=== PATIENT | male | born 1940 | race Caucasian/White ===

== ENCOUNTER 2019-10-12 15:17 | Outpatient (CLI) | payer MEDICARE, OTHER | END 2019-10-12 23:59 | disposition EMS.NT | LOC: EMS 15:17 | PROVIDERS: ATTEND Surgery | DX: R00.0 Tachycardia, unspecified (principal) ==

== ENCOUNTER 2019-12-01 14:54 | Emergency (ER) | payer MEDICARE, OTHER ==
[2019-12-01 15:04] VITALS: BP 145/67
--- NOTE | 2019-12-01 15:58 | ED Physician Documentation ---
PD HPI URI - Stated complaint Stated Complaint: CHEST CONGESTION/COUGH/WEAKNESS - Chief complaint Chief Complaint: Resp - History obtained from History obtained from: Patient - History of Present Illness Timing - onset: Today, How many weeks ago (1) Timing details: Gradual onset Pain level max: 0 Pain level now: 0 Associated symptoms: Productive cough. No: Fever, Chills, Sweats, Nasal congestion, Chest pain, Dyspnea Contributing factors: No: Sick contact Improves by: Rest Worsened by: Activity - Additional information Additional information: 79-year-old male states that he is been coughing for the past week. He states that it was productive then it turned dry and now is turned productive again. He denies any fevers. He states that he wants to make sure he does not have pneumonia. Nothing makes it better or worse. Review of Systems Constitutional: denies: Fever, Chills Nose: reports: Rhinorrhea / runny nose, Congestion Throat: denies: Sore throat Cardiac: denies: Chest pain / pressure, Palpitations Respiratory: reports: Cough GI: denies: Vomiting, Diarrhea Skin: denies: Rash Musculoskeletal: denies: Neck pain, Back pain Neurologic: denies: Headache PD PAST MEDICAL HISTORY - Past Medical History Past Medical History: Yes Cardiovascular: Hypertension, High cholesterol - Allergies Allergies/Adverse Reactions: Allergies Allergy/AdvReac Type Severity Reaction Status Date / Time No Known Drug Allergies Allergy Verified 12/01/19 15:01 PD ED PE NORMAL - Vitals Vital signs reviewed: Yes - General General: Alert and oriented X 3, No acute distress, Well developed/nourished - HEENT HEENT: Ears normal, Moist mucous membranes, Pharynx benign - Neck Neck: Supple, no meningeal sign - Cardiac Cardiac: RRR, Strong equal pulses - Respiratory Respiratory: No respiratory distress, Clear bilaterally - Abdomen Abdomen: Soft, Non tender, Non distended - Derm Derm: Warm and dry - Extremities Extremities: No edema - Neuro Neuro: Alert and oriented X 3 - Psych Psych: Normal mood, Normal affect Results - Vitals Vitals: Vital Signs - 24 hr 12/01/19 15:01 Temperature 36.6 C Heart Rate 109 H Respiratory 14 Rate Blood Pressure 145/67 H O2 Saturation 97 - Rads (name of study) Chest x-ray Radiology: Prelim report reviewed, EMP read contemporaneously, See rad report (No acute disease) PD MEDICAL DECISION MAKING - ED course Complexity details: reviewed results, re-evaluated patient, considered differential, d/w patient ED course: 79-year-old male presents the emergency department with what appears to be a viral upper respiratory infection. No acute findings on x-ray. He is well- appearing, nontoxic. Afebrile. No hypoxia. No respiratory distress. We will have him follow-up with his doctor as needed for further care. Patient counseled regarding signs and symptoms for which I believe and urgent re- evaluation would be necessary. Patient with good understanding of and agreement to plan and is comfortable going home at this time This document was made in part using voice recognition software. While efforts are made to proofread this document, sound alike and grammatical errors may oc cur. Departure - Departure Disposition: 01 Home, Self Care Clinical Impression: Upper respiratory tract infection Qualifiers: URI type: unspecified viral URI Qualified Code(s): J06.9 - Acute upper respiratory infection, unspecified Condition: Good Instructions: ED URI Viral Follow-Up: Yaya Cosme MD [Primary Care Provider] - As Needed Comments: Return if you worsen. You can continue to use [id number] medications as needed at home You do not have pneumonia on your chest x-ray today
--- NOTE | 2019-12-01 16:16 | XRAY Report ---
Reason: cough Procedure Date: 12/01/2019 Accession Number: [id number] / [id number] Procedure: XR - Chest 2 View X-Ray CPT Code: 57078 Final Report FULL RESULT: EXAM: CHEST RADIOGRAPHY EXAM DATE: 12/01/2019 04:05 PM. CLINICAL HISTORY: Cough. COMPARISON: None. TECHNIQUE: 2 views. FINDINGS: Lungs/Pleura: No focal opacities evident. No pleural effusion. No pneumothorax. Normal volumes. Mediastinum: Heart and mediastinal contours are unremarkable. Other: None. IMPRESSION: No acute cardiopulmonary process. RADIA
== END 2019-12-01 16:25 | disposition home or self-care (01) ==
LOC: ED 14:54
DX: J06.9 Acute upper respiratory infection, unspecified (principal); I10 Essential (primary) hypertension
CPT/HCPCS: 71046; 99283; 99284

== ENCOUNTER 2021-03-04 19:58 | Outpatient (CLI) | payer MEDICARE, OTHER | END 2021-03-04 19:59 | disposition critical access hospital (66) | LOC: EMS 19:58 | DX: S00.83XA Contusion of other part of head, initial encounter (principal); S81.802A Unspecified open wound, left lower leg, initial encounter; W18.30XA Fall on same level, unspecified, initial encounter; Y92.821 Forest as the place of occurrence of the external cause | CPT/HCPCS: A0425; A0429 ==

== ENCOUNTER 2021-03-04 20:24 | Emergency (ER) | payer MEDICARE, OTHER ==
--- OUTSIDE RECORDS SUMMARY | 2021-03-04 20:57 | EXTERNAL MEDICAL SUMMARY RPT | Continuity of Care Document ---
:1940 Demographics Phone Unavailable Preferred Language Unknown Marital Status Unknown Mormon Affiliation Unknown Race Unknown Ethnic Group Unknown Author Organization [facility] Address [address] [phone] Phone Allergies Encounters Medications Problems Results
--- NOTE | 2021-03-04 21:10 | ED Physician Documentation ---
PD HPI Fall - Stated complaint Stated Complaint: FELL, HIT HEAD, SKIN TEAR ON LEG - Chief complaint Chief Complaint: Laceration - History obtained from History obtained from: Patient - History of Present Illness Mechanism of injury: Unknown Fall distance: Standing position Timing - onset: Unknown Associated symptoms: No: LOC Contributing factors: No: Anticoagulated Recently seen: Not recently seen - Additional information Additional information: BIBA.patient fell while walking earlier today, unsure what caused him to fall. denies LOC, denies PERERA. Review of Systems Eyes: reports: Reviewed and negative Cardiac: reports: Reviewed and negative Respiratory: reports: Reviewed and negative GI: reports: Reviewed and negative Skin: reports: Other (LLE skin tear) Musculoskeletal: reports: Reviewed and negative Neurologic: reports: Head injury. denies: Generalized weakness, Headache, LOC PD PAST MEDICAL HISTORY - Past Medical History Cardiovascular: Hypertension, High cholesterol - Allergies Allergies/Adverse Reactions: Allergies Allergy/AdvReac Type Severity Reaction Status Date / Time No Known Drug Allergies Allergy Verified 03/04/21 20:44 PD ED PE NORMAL - Vitals Vital signs reviewed: Yes - General General: Alert and oriented X 3, No acute distress, Well developed/nourished - HEENT HEENT: PERRL, EOMI - Neck Neck: No bony TTP - Cardiac Cardiac: RRR - Respiratory Respiratory: No respiratory distress, Clear bilaterally - Abdomen Abdomen: Soft, Non tender - Derm Derm: Normal color, Warm and dry - Extremities Extremities: No deformity, No tenderness to palpate, Normal ROM s pain - Neuro Neuro: Alert and oriented X 3, diving supervisor 2-12 intact, No motor deficit, No sensory deficit, Normal speech Eye Opening: Spontaneous Motor: Obeys Commands Verbal: Oriented GCS Score: 15 PD ED PE EXPANDED - HEENT HEENT Visual: 1 - bruising, swelling, tenderness - Extremities Extremities: Other (left lower leg, pretibial surface with skin tear) Results - Vitals Vitals: Oxygen O2 Source Room air - Rads (name of study) CT head Radiology: Prelim report reviewed, See rad report PD MEDICAL DECISION MAKING - ED course Complexity details: reviewed results, re-evaluated patient, considered differential, d/w patient Departure - Departure Disposition: 01 Home, Self Care Clinical Impression: Head injury Qualifiers: Encounter type: initial encounter Qualified Code(s): S09.90XA - Unspecified injury of head, initial encounter Skin tear of left lower leg without complication Qualifiers: Encounter type: initial encounter Qualified Code(s): S81.812A - Laceration without foreign body, left lower leg, initial encounter Condition: Good Instructions: ED Head Injury Closed Sleep Mon, ED Avulsion Dermal Follow-Up: Yaya Cosme MD [Primary Care Provider] - (3-5 days for recheck of the wound) Discharge Date/Time: 03/04/21 23:10
[2021-03-04] MEDS ORDERED: BACITRACIN ZINC OINT 1 PACKET TOP STA (21:21)
[2021-03-04 22:49] VITALS: BP 154/79
--- NOTE | 2021-03-05 10:01 | CT Report ---
PROCEDURE: HEAD WO INDICATIONS: head injury TECHNIQUE: Noncontrast 4.5 mm thick angled axial sections acquired from the foramen magnum to the vertex. For r adiation dose reduction, the following was used: automated exposure control, adjustment of mA and/or kV according to patient size. COMPARISON: None. FINDINGS: Image quality: Excellent. CSF spaces: Basal cisterns are patent. No extra-axial fluid collections. Ventricles are normal in size and shape. Brain: No midline shift. No intracranial masses or hemorrhage. Lee-white matter interface is norm al. Age-appropriate brain parenchymal volume loss and chronic small vessel ischemic change can be se en. Skull and face: Minimal right periorbital/forehead soft tissue hematoma can be seen. No regional fra cture is seen. Calvarium and visualized facial bones are intact, without suspicious lesions. Sinuses: Visualized sinuses and mastoids are clear. IMPRESSION: No significant intracranial abnormality is seen. No intracranial hemorrhage is seen. Right pleural/reported hematoma, without an underlying fracture. Note: No significant discrepancy from the preliminary report. Reviewed by: Frederick Pike MD on 03/05/2021 9:00 AM JUVE Approved by: Frederick Pike MD on 03/05/2021 9:00 AM JUVE Station ID: [id number]
== END 2021-03-04 23:10 | disposition home or self-care (01) ==
LOC: EDUNIT# → ED 20:24
DX: S09.90XA Unspecified injury of head, initial encounter (principal); S81.812A Laceration without foreign body, left lower leg, initial encounter; S00.83XA Contusion of other part of head, initial encounter; W01.198A Fall on same level from slipping, tripping and stumbling with subsequent striking against other object, initial encounter; Y93.01 Activity, walking, marching and hiking; Y92.821 Forest as the place of occurrence of the external cause; I10 Essential (primary) hypertension
CPT/HCPCS: 70450; 99282; 99284; A9270

== ENCOUNTER 2021-03-23 09:50 | Outpatient (CLI) | payer MEDICARE, OTHER ==
[2021-03-23 14:48] LABS: HCT - HEMATOCRIT 37.6 % (42.0-52.0); HGB - HEMOGLOBIN 11.8 g/dL (14.0-18.0); MEAN CORPUSCULAR HEMOGLOBIN 30.2 pg (27.0-31.0); MEAN CORPUSCULAR HGB CONC 31.4 g/dL (32.0-36.0); MEAN CORPUSCULAR VOLUME 96.2 fL (80.0-94.0); MEAN PLATELET VOLUME 9.7 fL (7.4-11.4); RED BLOOD COUNT 3.91 10^6/uL (4.70-6.10); RED CELL DISTRIBUTION WIDTH 13.2 % (12.0-15.0); WHITE BLOOD COUNT 5.4 x10^3/uL (4.8-10.8)
[2021-03-23 16:02] LABS: THYROID STIMULATING HORMONE 1.95 uIU/mL (0.34-5.60)
[2021-03-23 16:03] LABS: ALBUMIN/GLOBULIN RATIO 1.1 (1.0-2.2); ALKALINE PHOSPHATASE 49 IU/L (42-121); ALT ALANINE AMINOTRANSFERASE 27 IU/L (10-60); AST ASPARTATE AMINOTRANSFERASE 24 IU/L (10-42); BILIRUBIN,TOTAL 0.7 mg/dL (0.2-1.0); BUN - BLOOD UREA NITROGEN 29 mg/dL (6-20); CALCIUM 9.2 mg/dL (8.5-10.3); CARBON DIOXIDE - CO2 24 mmol/L (21-32); CHLORIDE 107 mmol/L (101-111); CHOL/HDL RATIO 2.5 (<5.0); CHOLESTEROL 140 mg/dL; GFR - MDRD 72 (>89); GLUCOSE 124 mg/dL (70-100); HDL CHOLESTEROL 56 mg/dL; LDL CHOLESTEROL,CALCULATED 62 mg/dL; LDL/HDL RATIO 1.1 (<3.6); POTASSIUM 4.2 mmol/L (3.5-5.0); SODIUM 141 mmol/L (135-145); TOTAL PROTEIN 7.8 g/dL (6.7-8.2); TRIGLYCERIDES 109 mg/dL; VLDL CHOLESTEROL 22 mg/dL
== END 2021-03-23 09:51 | disposition home or self-care (01) ==
LOC: LAB.S 09:50
PROVIDERS: ATTEND Family Medicine
DX: C61 Malignant neoplasm of prostate (principal); E78.00 Pure hypercholesterolemia, unspecified; I10 Essential (primary) hypertension; E53.8 Deficiency of other specified B group vitamins
CPT/HCPCS: 36415; 80053; 80061; 82607; 83721; 84153; 84443; 85027

== ENCOUNTER 2021-09-01 18:51 | Outpatient (CLI) | payer MEDICARE, OTHER | END 2021-09-01 18:52 | disposition critical access hospital (66) | LOC: EMS 18:51 | DX: S51.812A Laceration without foreign body of left forearm, initial encounter (principal); R07.81 Pleurodynia; V49.49XA Driver injured in collision with other motor vehicles in traffic accident, initial encounter; Y93.89 Activity, other specified; Y92.411 Interstate highway as the place of occurrence of the external cause | CPT/HCPCS: A0425; A0429 ==

== ENCOUNTER 2021-09-01 19:15 | Emergency (ER) | payer OTHER, MEDICARE ==
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
[2021-09-01 20:48] VITALS: BP 161/75
== END 2021-09-01 20:50 | disposition home or self-care (01) ==
LOC: EDUNIT# → ED 19:15
DX: S20.211A Contusion of right front wall of thorax, initial encounter (principal); S50.812A Abrasion of left forearm, initial encounter; S00.81XA Abrasion of other part of head, initial encounter; V43.52XA Car driver injured in collision with other type car in traffic accident, initial encounter; W22.11XA Striking against or struck by driver side automobile airbag, initial encounter; Y92.410 Unspecified street and highway as the place of occurrence of the external cause; I10 Essential (primary) hypertension
CPT/HCPCS: 99282; 99283

== ENCOUNTER 2021-12-08 15:31 | Outpatient (CLI) | payer MEDICARE, OTHER ==
[2021-12-08 18:46] LABS: CALCIUM 9.8 mg/dL (8.5-10.3); CREATININE 1.1 mg/dL (0.6-1.2); CRP - C-REACTIVE PROTEIN 1.2 mg/dL (0-1.0); POTASSIUM 4.7 mmol/L (3.5-5.0)
== END 2021-12-08 15:32 | disposition home or self-care (01) ==
LOC: LAB.S 15:31
PROVIDERS: ATTEND Internal Medicine Rheumatology
DX: M35.3 Polymyalgia rheumatica (principal); Z79.52 Long term (current) use of systemic steroids
CPT/HCPCS: 36415; 80048; 85651; 86140

== ENCOUNTER 2022-01-31 11:51 | Outpatient (CLI) | payer MEDICARE, OTHER | END 2022-01-31 11:52 | disposition EMS.NT | LOC: EMS 11:51 | DX: Z03.89 Encounter for observation for other suspected diseases and conditions ruled out (principal) ==

== ENCOUNTER 2023-01-25 14:07 | Outpatient (CLI) | payer MEDICARE | END 2023-01-25 23:59 | disposition critical access hospital (66) | LOC: EMS 14:07 | DX: R41.0 Disorientation, unspecified (principal); R29.6 Repeated falls; R53.1 Weakness | CPT/HCPCS: A0425; A0429 ==

== ENCOUNTER 2023-01-25 14:34 | Inpatient (IN) | payer MEDICARE, OTHER ==
--- NOTE | 2023-01-25 14:54 | ED Physician Documentation ---
History of Present Illness - Stated complaint Stated Complaint: AMS - Chief complaint Chief Complaint: General - History obtained from History obtained from: Patient (Patient is very hard of hearing), EMS - Additonal information Additional information: Patient is an 82-year-old male coming from home with generalized weakness and unwitnessed fall. Per EMS he had his medications in pill dispenser and he had been taking his medications up until Friday morning. Patient believes he fell early yesterday morning. He states that he has hardwood floors and they are slippery and he is prone to falling. He is very hard of hearing and is not able to give any other details regarding his fall. He reports having some generalized body aches but states that that is normal for him. He denies having a headache, chest pain, SOA, abdominal pain, vomiting. Does report occasionally having some alcohol. He does not currently take a blood thinner. Per his daughter he has not been heard from since Friday when someone went to his door to try and give him a ride to a doctor's appointment. She states because of his hearing difficulties he often communicates with them through email. She has not received any emails from him since Friday but that can happen as sometimes he will accidentally disconnect something from his computer or his house will have an Internet issue. Review of Systems Cardiac: denies: Chest pain / pressure Respiratory: denies: Dyspnea GI: denies: Abdominal Pain PD PAST MEDICAL HISTORY - Past Medical History Cardiovascular: Hypertension, High cholesterol Psych: Depression - Present Medications Home Medications: Ambulatory Orders Medication Instructions Recorded Confirmed Lisinopril [Zestril] 2.5 mg PO DAILY 09/01/21 09/01/21 Sertraline [Zoloft] 25 mg PO DAILY 09/01/21 09/01/21 - Allergies Allergies/Adverse Reactions: Allergies Allergy/AdvReac Type Severity Reaction Status Date / Time No Known Drug Allergies Allergy Verified 01/25/23 14:44 - Social History Does the pt smoke?: No Smoking Status: Never smoker PD ED PE NORMAL - General General: No acute distress, Well developed/nourished. No: Alert and oriented X 3 (Alert and oriented to person and place; unclear on date) - HEENT HEENT: Atraumatic, Moist mucous membranes, Pharynx benign - Neck Neck: Supple, no meningeal sign, No bony TTP. No: C-Spine cleared by NEXUS criteria (Given concerns for confusion) - Cardiac Cardiac: RRR, No murmur - Respiratory Respiratory: No respiratory distress, Clear bilaterally - Abdomen Abdomen: Normal bowel sounds, Soft, Non tender - Back Back: No spinal TTP - Derm Derm: Other (Bruising to body and left hip,) - Extremities Extremities: No deformity, No tenderness to palpate, Normal ROM s pain, Other (Good ROM at b/l hips) - Neuro Neuro: business services vice president 2-12 intact, No motor deficit, Normal speech. No: Alert and oriented X 3 (Unclear on date) Results - Vitals Vitals: Vital Signs - 24 hr 01/25/23 01/25/23 01/25/23 14:40 17:00 17:42 Temperature 35.8 C L 36 C L Heart Rate 72 67 Heart Rate [ 77 Sitting] Heart Rate [ 68 Supine] Respiratory 20 18 Rate Blood Pressure 138/73 H 159/64 H Blood Pressure 156/59 H [Sitting] Blood Pressure 158/62 H [Supine] O2 Saturation 96 98 Oxygen O2 Source Room air - EKG (time done) 1447 EKG releavant findings:: EKG personally interpreted by author of this note. Relevant findings are: Rate 70, normal sinus rhythm, motion artifact at the baseline, QTc 439, no STEMI - Labs Labs: Laboratory Tests 01/25/23 01/25/23 01/25/23 15:06 15:28 16:52 WBC 11.6 H RBC 4.64 L Hgb 13.6 L Hct 43.3 MCV 93.3 MCH 29.3 MCHC 31.4 L RDW 13.7 Plt Count 160 MPV 9.2 Neut # (Auto) 10.2 H Lymph # (Auto) 0.7 L Park # (Auto) 0.6 Eos # (Auto) 0.0 Baso # (Auto) 0.0 Absolute Nucleated RBC 0.00 Nucleated RBC % 0.0 Sodium 139 Potassium 3.9 Chloride 105 Carbon Dioxide 21 Anion Gap 13.0 BUN 42 H Creatinine 1.1 Estimated GFR (MDRD) 64 L Glucose 105 H Calcium 8.5 Total Bilirubin 1.1 H AST 151 H ALT 84 H Alkaline Phosphatase 33 L Total Creatine Kinase 2500 H* Total Protein 7.2 Albumin 3.7 Globulin 3.5 Albumin/Globulin Ratio 1.1 Lipase 38 Urine Color DARK YELLOW Urine Clarity CLEAR Urine pH 5.5 Ur Specific [place] >=1.030 H Urine Protein NEGATIVE Urine Glucose (UA) NEGATIVE Urine Ketones TRACE Urine Occult Blood NEGATIVE Urine Nitrite NEGATIVE Urine Bilirubin NEGATIVE Urine Urobilinogen 0.2 (NORMAL) Ur Leukocyte Esterase NEGATIVE Ur Microscopic Review NOT INDICATED Urine Culture Comments NOT INDICATED Ethyl Alcohol < 5.0 PD Medical Decision Making - ED course Complexity details: reviewed results, re-evaluated patient, d/w patient, d/w family (daughter) ED course: Pt is an 82-year-old gentleman presenting from home with generalized weakness and unwitnessed fall. It is believed he fell yesterday morning.History is somewhat limited as the patient is quite hard of hearing. He has no focal deficits. CT head and cervical spine were obtained without acute findings. I did review his chest x-ray and see no signs of consolidation. Labs reviewed including CBC, chemistry and urine analysis. His CK is elevated at 2500.He does not have any pelvic or hip pain and has good range of motion of bilateral hips but he is very weak and unsteady on his feet. He does not appear to be at his baseline and would benefit from continued treatment. I discussed the case with the hospitalist, Dr. Arredondo who agrees to observe the patient. She request orthostatic vital signs which I requested the RN to complete and document so that Dr. Arredondo could review these to determine whether patient meets admission criteria. Departure - Departure Disposition: ED Place in Observation Clinical Impression: Rhabdomyolysis, Generalized weakness, Fall at home Condition: Fair Discharge Date/Time: 01/25/23 19:07
[2023-01-25] MEDS ORDERED: SODIUM CHLORIDE 0.9% 500 ML IV STA ×2 (15:15→17:03)
[2023-01-25 15:32] LABS: ALBUMIN 3.7 g/dL (3.2-5.5); ALBUMIN/GLOBULIN RATIO 1.1 (1.0-2.2); ALKALINE PHOSPHATASE 33 IU/L (42-121); ALT ALANINE AMINOTRANSFERASE 84 IU/L (10-60); AST ASPARTATE AMINOTRANSFERASE 151 IU/L (10-42); BILIRUBIN,TOTAL 1.1 mg/dL (0.2-1.0); BUN - BLOOD UREA NITROGEN 42 mg/dL (6-20); CALCIUM 8.5 mg/dL (8.5-10.3); CARBON DIOXIDE - CO2 21 mmol/L (21-32); CHLORIDE 105 mmol/L (101-111); CREATININE 1.1 mg/dL (0.6-1.2); ETOH - ETHANOL < 5.0 mg/dL; GFR - MDRD 64 (>89); GLUCOSE 105 mg/dL (70-100); LIPASE 38 U/L (22-51); POTASSIUM 3.9 mmol/L (3.5-5.0); SODIUM 139 mmol/L (135-145); TOTAL PROTEIN 7.2 g/dL (6.7-8.2)
[2023-01-25 15:34] LABS: CK- CREATINE KINASE 2500 IU/L (22-269)
[2023-01-25 15:35] LABS: BASOPHILS % (AUTO) 0.1 %; EOSINOPHILS % (AUTO) 0.1 %; HCT - HEMATOCRIT 43.3 % (42.0-52.0); HGB - HEMOGLOBIN 13.6 g/dL (14.0-18.0); LYMPHOCYTES # (AUTO) 0.7 10^3/uL (1.5-3.5); LYMPHOCYTES % (AUTO) 5.7 %; MEAN CORPUSCULAR HEMOGLOBIN 29.3 pg (27.0-31.0); MEAN CORPUSCULAR HGB CONC 31.4 g/dL (32.0-36.0); MEAN CORPUSCULAR VOLUME 93.3 fL (80.0-94.0); MEAN PLATELET VOLUME 9.2 fL (7.4-11.4); MONOCYTES # (AUTO) 0.6 10^3/uL (0.0-1.0); MONOCYTES % (AUTO) 5.5 %; NEUTROPHILS # (AUTO) 10.2 10^3/uL (1.5-6.6); NEUTROPHILS % (AUTO) 88.3 %; PLT - PLATELET COUNT 160 10^3/uL (130-450); RED BLOOD COUNT 4.64 10^6/uL (4.70-6.10); RED CELL DISTRIBUTION WIDTH 13.7 % (12.0-15.0); WHITE BLOOD COUNT 11.6 x10^3/uL (4.8-10.8)
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
--- NOTE | 2023-01-25 15:47 | CT Report ---
PROCEDURE: CERVICAL SPINE WO INDICATIONS: unwitnessed fall TECHNIQUE: Noncontrast 3 mm thick sections acquired from the skull base to the T4 level. Sagittal and coronal r eformats were then constructed. For radiation dose reduction, the following was used: automated exp osure control, adjustment of mA and/or kV according to patient size. COMPARISON: None. FINDINGS: Image quality: Excellent. Bones: No fractures or dislocations. 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 Moderate facet arthropathy at C2-C3 and C4-C5 on the left, C3-C4 bilaterally. Severe atlantoax ial joint degeneration. Visualized superior ribs are intact. Soft tissues: Prevertebral soft tissues are normal in thickness. No paravertebral hematomas. No ap ical pneumothoraces. Severe carotid artery atherosclerosis bilaterally. IMPRESSION: 1. No cervical spine fracture. 2. Degenerative changes as described. Reviewed by: Efra Cotter MD on 01/25/2023 3:46 PM PDT Approved by: Efra Cotter MD on 01/25/2023 3:46 PM PDT Station ID: [id number]
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
[2023-01-25 17:00] LABS: BILIRUBIN,URINE NEGATIVE (NEGATIVE); GLUCOSE, URINE (UA) NEGATIVE (NEGATIVE); KETONES,URINE (UA) TRACE mg/dL (NEGATIVE); LEUKOCYTE ESTERASE, URINE NEGATIVE (NEGATIVE); NITRITE,URINE NEGATIVE (NEGATIVE); OCCULT BLOOD,URINE NEGATIVE (NEGATIVE); PH,URINE 5.5 PH (5.0-7.5); PROTEIN,URINE NEGATIVE (NEGATIVE); UROBILINOGEN,URINE 0.2 (NORMAL) E.U./dL (NORMAL)
[2023-01-25 17:01] LABS: CLARITY,URINE CLEAR (CLEAR)
[2023-01-25] MEDS ORDERED: ONDANSETRON 4 MG/2 ML VIAL IVP PRN (17:56)
[2023-01-25] MEDS ORDERED: SODIUM CHLORIDE FLUSH 0.9% 10 ML SYRINGE IVP PRN (17:56)
--- NOTE | 2023-01-25 17:59 | HISTORY & PHYSICAL EXAMINATION ---
Chief Complaint - Chief Complaint Chief Complaint: Found down on ground, fall at home History of Present Illness - Admitted From Admitted From:: ED - History Obtained From History obtained from: ED provider and chart review, Pt is very [place] - History of Present Illness HPI Comment/Other: This is an 82-year-old male who lives alone at home. He has a history of hypertension and hyperlipidemia. He is very hard of hearing and communicates with his family by email. He was last seen 6 days ago when someone took him to an appointment. The daughter has not heard from him since that day and also has not received emails from him all week since that day, but this is not unusual because occasionally his computer or the Internet are not in working order. Today the daughter went to check on him and found him down on the ground and EMS was called. The locomotive operator notes state that "foul urine was noted, he had a normal blood pressure of -, heart rate -, glucose -. He was brought to the ER. He underwent a head CT and C-spine CT which showed no trauma or hemorrhage. His report to the ED provider was that he thinks he fell a day ago and has fallen in the past "due to slippery floors". The paramedics had said that he has daily medications in a dispenser and that these were taken up until yesterday morning when they were not consumed. Therefore they think that he was on the ground for 1-1/2 days. In the ED he attempted to stand to obtain a urine sample and was very unsteady, his knees buckled, he was helped back to the [facility] before he would fall. There were no focal findings on his neurologic exam in the emergency room however the daughter confirmed to the ED provider that the patient was speaking off topic and was also not oriented to month or year which is not his normal. The patient told the ED provider that he does "drink some alcohol". Labs came back showing an elevated BUN/creatinine of 47/1.1. CK of 2500. The ED provider spoke to me about this patient. He will be placed in Observation status for managing rhabdomyolysis caused by his fall and laying on the ground for 1.5 days. He has evidence of volume depletion and may have had orthostasis, but this could not be confirmed in the ED, since he would only go from supine to sitting position. The patient has no POLST therefore by default he will be a Full Code. History - Past Medical History Cardiovascular: reports: Hypertension, High cholesterol Psych: reports: Depression MRSA Hx?: No - Past Surgical History General: reports: Cholecystectomy, Bowel surgery - Family & Social History Family History Comment/Other: He does not know Living arrangement: At home Living Situation: Alone Social History Notes: No alcohol use. No smoking Meds/Allgy - Home Medications Home Medications: Ambulatory Orders Medication Instructions Recorded Confirmed Lisinopril [Zestril] 2.5 mg PO DAILY 09/01/21 09/01/21 Sertraline [Zoloft] 25 mg PO DAILY 09/01/21 09/01/21 - Allergies Allergies/Adverse Reactions: Allergies Allergy/AdvReac Type Severity Reaction Status Date / Time No Known Drug Allergies Allergy Verified 01/25/23 14:44 Review of Systems - All Other Systems All Other Systems: reports: Other (The patient is a poor historian and is also [place] so hard to communicate with him) Exam - Vital Signs Vital Signs: Vital Signs x48h Temp Pulse Pulse Pulse Resp BP BP 01/25/23 17:42 77 68 156/59 H 01/25/23 17:00 36 C L 67 18 159/64 H 01/25/23 14:40 35.8 C L 72 20 138/73 H BP Pulse Ox 01/25/23 17:42 158/62 H 01/25/23 17:00 98 01/25/23 14:40 96 - Physical Exam General Appearance: positive: No acute distress, Alert Eyes Bilateral: positive: Normal inspection ENT: positive: Dry mucous membranes, Other (Very [place] (he seems to be reading lips)) Neck: positive: Nml inspection Respiratory: positive: No respiratory distress, Breath sounds nml Cardiovascular: positive: Regular rate & rhythm, No murmur Abdomen: positive: Non-tender, Nml bowel sounds, No distention Skin: positive: Warm, Dry Extremities: positive: Non-tender, No pedal edema Neurologic/Psychiatric: positive: Disoriented to person, Disoriented to place, Disoriented to time, Other (He recognizes daughter. He was talking about things he was ruminating about that were off topic (possibly because he could not hear us). His steps appeared to be ataxic when he was standing holding onto a walker having orthostatic vital signs taken) Conclusion/Plan - Problem List (1) Rhabdomyolysis Conclusion/Plan: Serum CK is 2500 consistent with rhabdomyolysis. This is was caused by his fall and laying on the ground for 1-1/2 days Plan: Continue with the IV fluids started in the ED Follow CK daily to assure it is correcting, since CK could initially worsen before it improves Avoid nephrotoxins Follow BMP daily (2) Prerenal azotemia Conclusion/Plan: Caused by his laying on ground for 1.5 days with no oral intake. Plan: Continue with IV fluids that were started in ED Avoid nephrotoxins Follow BMP daily (3) Fall at home Conclusion/Plan: According to the patient, he falls because his "floors are slippery", and he admitted to falling in the past. With this presentation leading to rhabdomyolysis, prerenal azotemia is seen on labs and I am concerned that he is orthostatic as a cause for his current fall. He is also on one blood pressure medication which may be adding to potential orthostasis Plan: Place the patient on telemetry to watch for dysrhythmias Obtain orthostatic vital signs every shift Will order evaluation by PT and OT (tonight is Friday night and we have no PT or OT here until Friday morning) Since he admitted to drinking alcohol, and details of the amount are not known, we will order a CIWA protocol with as needed Ativan in case of signs of alcohol withdrawal (4) [place] (hard of hearing) Conclusion/Plan: Plan: I have asked the patient's daughter to personally bring in his hearing aid and we will order that the patient wear tit, so that we can communicate with him and assure he understands. - Lab Results Fish Bones: 01/26/23 05:07 01/26/23 05:07 - Diagnostic Imaging Results Diagnostic Imaging Results: positive: Final report reviewed
[2023-01-25] MEDS ORDERED: LORazepam 2 MG/ML VIAL IVP PRN (18:00)
[2023-01-25] MEDS: SODIUM CHLORIDE 0.9% 1,000 ML IV SCH (19:36)
[2023-01-25] MEDS: ACETAMINOPHEN 325 MG TABLET PO PRN (21:10)
[2023-01-26 05:16] LABS: BASOPHILS % (AUTO) 0.1 %; EOSINOPHILS # (AUTO) 0.1 10^3/uL (0.0-0.7); EOSINOPHILS % (AUTO) 0.9 %; HCT - HEMATOCRIT 36.3 % (42.0-52.0); HGB - HEMOGLOBIN 11.5 g/dL (14.0-18.0); LYMPHOCYTES # (AUTO) 0.7 10^3/uL (1.5-3.5); LYMPHOCYTES % (AUTO) 8.5 %; MEAN CORPUSCULAR HEMOGLOBIN 29.6 pg (27.0-31.0); MEAN CORPUSCULAR HGB CONC 31.7 g/dL (32.0-36.0); MEAN CORPUSCULAR VOLUME 93.3 fL (80.0-94.0); MEAN PLATELET VOLUME 9.1 fL (7.4-11.4); MONOCYTES # (AUTO) 0.4 10^3/uL (0.0-1.0); MONOCYTES % (AUTO) 5.6 %; NEUTROPHILS # (AUTO) 6.6 10^3/uL (1.5-6.6); NEUTROPHILS % (AUTO) 84.6 %; PLT - PLATELET COUNT 125 10^3/uL (130-450); RED BLOOD COUNT 3.89 10^6/uL (4.70-6.10); WHITE BLOOD COUNT 7.9 x10^3/uL (4.8-10.8)
[2023-01-26 05:36] LABS: CREATININE 1.1 mg/dL (0.6-1.2); MAGNESIUM 2.2 mg/dL (1.7-2.8); POTASSIUM 3.9 mmol/L (3.5-5.0)
[2023-01-26] MEDS: SODIUM CHLORIDE FLUSH 0.9% 10 ML SYRINGE IVP SCH ×3 (05:44→16:00)
[2023-01-26] MEDS: SODIUM CHLORIDE 0.9% 1,000 ML IV SCH ×2 (05:47→15:59)
[2023-01-26] MEDS: ACETAMINOPHEN 325 MG TABLET PO PRN (05:49)
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
[2023-01-26] MEDS: polyethylene glycoL 3350 17 GM PACKET PO SCH (11:34)
[2023-01-27] MEDS: SODIUM CHLORIDE 0.9% 1,000 ML IV SCH ×3 (01:41→20:01)
[2023-01-27] MEDS: SODIUM CHLORIDE FLUSH 0.9% 10 ML SYRINGE IVP SCH ×4 (01:41→20:38)
[2023-01-27] MEDS: ACETAMINOPHEN 325 MG TABLET PO PRN (01:41)
[2023-01-27 05:39] LABS: CALCIUM 7.9 mg/dL (8.5-10.3); POTASSIUM 3.8 mmol/L (3.5-5.0)
[2023-01-27] MEDS: polyethylene glycoL 3350 17 GM PACKET PO SCH (08:02)
--- NOTE | 2023-01-27 08:55 | XRAY Report ---
PROCEDURE: Chest 1 View X-Ray INDICATIONS: Cough w/ sputum production TECHNIQUE: One view of the chest was acquired. COMPARISON: None. FINDINGS: Surgical changes and devices: None. Lungs and pleura: No pleural effusions or pneumothorax. Mild patchy bibasilar atelectasis. Mediastinum: Mediastinal contours appear normal. Heart size is normal. Bones and chest wall: No suspicious bony lesions. Overlying soft tissues appear unremarkable. IMPRESSION: Mild patchy bibasilar atelectasis. Reviewed by: Scooter Rodríguez MD on 01/27/2023 8:54 AM PDT Approved by: Scooter oRdríguez MD on 01/27/2023 8:54 AM PDT Station ID: [id number]
[2023-01-27] MEDS ORDERED: IPRATROPIUM/ALBUTEROL 3 ML NEB INH STA (08:56)
[2023-01-27] MEDS ORDERED: IPRATROPIUM/ALBUTEROL 3 ML NEB INH PRN (08:56)
[2023-01-27] MEDS: THIAMINE INJ 500 MG in SODIUM CHLORIDE 0.9% 50 ML IV SCH (09:17)
[2023-01-27] MEDS: TAMSULOSIN 0.4 MG CAPSULE PO SCH (09:22)
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
[2023-01-27] MEDS: guaiFENesin 600 MG TABLET PO SCH ×2 (12:40→20:01)
--- NOTE | 2023-01-27 12:40 | PHARMACY PROGRESS NOTE ---
- Best Possible Medication History Admit Date and Time: 01/26/2327 Processed by: Pharmacy Medication History completed: Yes Patient Interview: Completed Secondary Source(s): Written medication list, Pharmacy records Patient could not remember names or strengths of the medications he takes at home. Med list updated using printed list from [employer]. As the person ultimately responsible for medication therapy, providers are able to order a medication from an existing home medication list in [facility] via the "Reconcile Routine" prior to Confirmation of that medication by application support administrator. Such practice is discouraged except when the physician, in their clinical judgment, deems that a medical need exists for a medication without regard to previous use.
[2023-01-28 05:32] LABS: BASOPHILS % (AUTO) 0.2 %; EOSINOPHILS # (AUTO) 0.1 10^3/uL (0.0-0.7); EOSINOPHILS % (AUTO) 0.9 %; HCT - HEMATOCRIT 33.6 % (42.0-52.0); HGB - HEMOGLOBIN 10.4 g/dL (14.0-18.0); LYMPHOCYTES # (AUTO) 0.7 10^3/uL (1.5-3.5); LYMPHOCYTES % (AUTO) 10.8 %; MEAN CORPUSCULAR HEMOGLOBIN 29.1 pg (27.0-31.0); MEAN CORPUSCULAR VOLUME 93.9 fL (80.0-94.0); MONOCYTES # (AUTO) 0.4 10^3/uL (0.0-1.0); MONOCYTES % (AUTO) 5.6 %; NEUTROPHILS # (AUTO) 5.5 10^3/uL (1.5-6.6); NEUTROPHILS % (AUTO) 82.2 %; PLT - PLATELET COUNT 133 10^3/uL (130-450); RED BLOOD COUNT 3.58 10^6/uL (4.70-6.10); RED CELL DISTRIBUTION WIDTH 13.7 % (12.0-15.0); WHITE BLOOD COUNT 6.7 x10^3/uL (4.8-10.8)
[2023-01-28 05:42] LABS: CALCIUM 7.9 mg/dL (8.5-10.3); CREATININE 0.9 mg/dL (0.6-1.2); MAGNESIUM 1.9 mg/dL (1.7-2.8)
[2023-01-28] MEDS ORDERED: MAGNESIUM HYDROXIDE 2,400 MG/30 ML UDC PO ONE (08:25)
[2023-01-28] MEDS: SODIUM CHLORIDE 0.9% 1,000 ML IV SCH ×3 (08:50→18:04)
[2023-01-28] MEDS: SODIUM CHLORIDE FLUSH 0.9% 10 ML SYRINGE IVP SCH ×2 (08:51→16:20)
[2023-01-28] MEDS: guaiFENesin 600 MG TABLET PO SCH ×2 (09:07→20:16)
[2023-01-28] MEDS: TAMSULOSIN 0.4 MG CAPSULE PO SCH (09:07)
[2023-01-28] MEDS: ACETAMINOPHEN 325 MG TABLET PO PRN ×2 (09:08→17:59)
[2023-01-28] MEDS: SENNA 8.6 MG TABLET PO SCH (09:08)
[2023-01-28] MEDS: polyethylene glycoL 3350 17 GM PACKET PO SCH (09:09)
[2023-01-28] MEDS: THIAMINE INJ 500 MG in SODIUM CHLORIDE 0.9% 50 ML IV SCH (09:09)
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
--- NOTE | 2023-01-28 15:16 | XRAY Report ---
PROCEDURE: Chest for Line Placement INDICATIONS: picc line TECHNIQUE: One view of the chest was acquired. COMPARISON: None. FINDINGS: Surgical changes and devices: Right-sided PICC line tip in the mid SVC Lungs and pleura: No pleural effusions or pneumothorax. Lungs are clear. Mediastinum: Mediastinal contours appear normal. Heart size is normal. Atherosclerotic vascular valerie cification noted in the aortic arch. Bones and chest wall: No suspicious bony lesions. Overlying soft tissues appear unremarkable. IMPRESSION: Right-sided PICC line tip in the mid SVC. No pneumothorax Reviewed by: Wicho Montes MD on 01/28/2023 2:14 PM [facility]DT Approved by: Wicho Montes MD on 01/28/2023 2:14 PM [facility]DT Station ID: [id number]
--- NOTE | 2023-01-28 15:58 | ANESTHESIA PROCEDURE NOTE ---
Anesth Central Line Template - Central Line Central Line Preparation: Consent Obtained, Time out completed, Ultrasound used, Sterile prep and drape Central line location: Right Basilic Central line type: PICC Single Lumen Central line catheter tip site resides: Superior vena cava (SVC) Central line aftercare: Secured, Placement confirmed, No pneumothorax, No complications, Bundle checklist complete, Pt tolerated well
[2023-01-28] MEDS: CHOLECALCIFEROL 25 MCG TABLET PO SCH (16:20)
[2023-01-29] MEDS: SODIUM CHLORIDE FLUSH 0.9% 10 ML SYRINGE IVP SCH ×3 (01:40→16:00)
[2023-01-29] MEDS: SODIUM CHLORIDE 0.9% 1,000 ML IV SCH ×3 (03:56→23:59)
[2023-01-29 05:02] LABS: BASOPHILS % (AUTO) 0.2 %; EOSINOPHILS % (AUTO) 0.4 %; HCT - HEMATOCRIT 34.4 % (42.0-52.0); HGB - HEMOGLOBIN 10.7 g/dL (14.0-18.0); LYMPHOCYTES # (AUTO) 0.7 10^3/uL (1.5-3.5); LYMPHOCYTES % (AUTO) 8.4 %; MEAN CORPUSCULAR HEMOGLOBIN 29.2 pg (27.0-31.0); MEAN CORPUSCULAR HGB CONC 31.1 g/dL (32.0-36.0); MEAN PLATELET VOLUME 8.9 fL (7.4-11.4); MONOCYTES # (AUTO) 0.4 10^3/uL (0.0-1.0); MONOCYTES % (AUTO) 5.5 %; NEUTROPHILS # (AUTO) 6.8 10^3/uL (1.5-6.6); NEUTROPHILS % (AUTO) 85.1 %; PLT - PLATELET COUNT 148 10^3/uL (130-450); RED BLOOD COUNT 3.66 10^6/uL (4.70-6.10); RED CELL DISTRIBUTION WIDTH 13.6 % (12.0-15.0)
[2023-01-29 05:11] LABS: CALCIUM 7.9 mg/dL (8.5-10.3); POTASSIUM 4.1 mmol/L (3.5-5.0)
[2023-01-29] MEDS ORDERED: SODIUM CHLORIDE 0.9% 50 ML IV ONE (09:15)
[2023-01-29] MEDS: CHOLECALCIFEROL 25 MCG TABLET PO SCH (09:24)
[2023-01-29] MEDS: SENNA 8.6 MG TABLET PO SCH (09:24)
[2023-01-29] MEDS: polyethylene glycoL 3350 17 GM PACKET PO SCH (09:24)
[2023-01-29] MEDS: guaiFENesin 600 MG TABLET PO SCH ×2 (09:25→20:09)
[2023-01-29] MEDS: THIAMINE INJ 500 MG in SODIUM CHLORIDE 0.9% 50 ML IV SCH (09:25)
[2023-01-29] MEDS: TAMSULOSIN 0.4 MG CAPSULE PO SCH (09:25)
[2023-01-29] MEDS: MULTIVITAMIN W/MINERALS TABLET PO SCH (09:26)
[2023-01-29] MEDS: ZINC OXIDE 20% OINT 30 GM TUBE TOP PRN (14:13)
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
--- NOTE | 2023-01-29 19:06 | ADVANCE CARE PLANNING NOTE ---
Advance Care Planning - Planning Encounter Date: 01/29/23 Time: 19:03 Purpose: establish code status w DPOA Daughter Alexia Parties in Attendance: hospitalist on phone and daugher Decisional Capacity of the Patient: Forgetful, cooperative. Profoundly deaf. - Diagnosis for Encounter (1) Frequent falls Summary: Due to age, ataxia, osteoarthritis of the knees. - Encounter Subjective/Patient's Story: Patient was admitted for rhabdomyolysis. He lives alone and is hard of hearing and he communicates with his family by email. Daughter did not hear from him for 6 days so she went to check on him and found him on the floor. He probably been on the ground for 1-1/2 days. He is gradually recovered. On admission a POLST form was filled out. With the patient. That POLST form says DO NOT RESUSCITATE but comfort measures only. As the patient is about [facility], we wanted to make sure that CODE STATUS was correct. In discussion with his daughter, we discussed options where everything is done. All measures done. Dialysis, surgeries, etc.'s. Hospitalization every time he needs it. Scenario #2 was selective treatment of diseases. He would get antibiotics, blood transfusions, surgeries of absolutely necessary. And a full code with full resuscitation. Scenario #3 was same scenario #2 but DO NOT RESUSCITATE. And finally sooner #4 was comfort measures only. Avoid hospitalizations. And DO NOT RESUSCITATE. Of the scenarios his daughter would prefer selective treatments. No dialysis. Discussion of all surgeries in a judicious way. If he needed antibiotics or blood transfusions to give them. But DO NOT RESUSCITATE. I explained that he would get all treatment up until what she says not to do. And only after he was not responding to her treatment, and continuing to succumb to his illness, would we DO NOT RESUSCITATE and she is okay with that Objective/Medical Story: This is an 82-year-old male who lives alone at home. He has a history of hypertension and hyperlipidemia. He is very hard of hearing and communicates with his family by email. He was last seen 6 days ago when someone took him to an appointment. The daughter has not heard from him since that day and also has not received emails from him all week since that day, but this is not unusual because occasionally his computer or the Internet are not in working order. Today the daughter went to check on him and found him down on the ground and EMS was called. The audiovisual technician notes state that "foul urine was noted, he had a normal blood pressure of -, heart rate -, glucose -. He was brought to the ER. He underwent a head CT and C-spine CT which showed no trauma or hemorrhage. His report to the ED provider was that he thinks he fell a day ago and has fallen in the past "due to slippery floors". The paramedics had said that he has daily medications in a dispenser and that these were taken up until yesterday morning when they were not consumed. Therefore they think that he was on the ground for 1-1/2 days. In the ED he attempted to stand to obtain a urine sample and was very unsteady, his knees buckled, he was helped back to the [facility] before he would fall. There were no focal findings on his neurologic exam in the emergency room however the daughter confirmed to the ED provider that the patient was speaking off topic and was also not oriented to month or year which is not his normal. The patient told the ED provider that he does "drink some alcohol". Labs came back showing an elevated BUN/creatinine of 47/1.1. CK of 2500. The ED provider spoke to me about this patient. He will be placed in Observation status for managing rhabdomyolysis caused by his fall and laying on the ground for 1.5 days. He has evidence of volume depletion and may have had orthostasis, but this could not be confirmed in the ED, since he would only go from supine to sitting position. The patient has no POLST therefore by default he will be a Full Code. History - Past Medical History Cardiovascular: reports: Hypertension, High cholesterol Psych: reports: Depression MRSA Hx?: No - Past Surgical History General: reports: Cholecystectomy, Bowel surgery - Family & Social History Family History Comment/Other: He does not know Living arrangement: At home Living Situation: Alone Social History Notes: No alcohol use. No smoking Goals of Care: Focused on getting him stronger. Improve his mobility. Decrease his risk of falls. Daughter would like short-term rehab. And after rehab reassess him and see if he needs to go to long-term placement. Plan: POLST form filled out. Patient is DO NOT RESUSCITATE. Code Status: Do Not Attempt Resuscitation
[2023-01-29] MEDS: ACETAMINOPHEN 325 MG TABLET PO PRN (23:59)
[2023-01-30 06:43] LABS: BASOPHILS % (AUTO) 0.1 %; EOSINOPHILS % (AUTO) 0.1 %; HCT - HEMATOCRIT 32.4 % (42.0-52.0); HGB - HEMOGLOBIN 10.1 g/dL (14.0-18.0); LYMPHOCYTES # (AUTO) 0.5 10^3/uL (1.5-3.5); LYMPHOCYTES % (AUTO) 7.5 %; MEAN CORPUSCULAR HEMOGLOBIN 29.1 pg (27.0-31.0); MEAN CORPUSCULAR HGB CONC 31.2 g/dL (32.0-36.0); MEAN CORPUSCULAR VOLUME 93.4 fL (80.0-94.0); MONOCYTES # (AUTO) 0.5 10^3/uL (0.0-1.0); MONOCYTES % (AUTO) 6.4 %; NEUTROPHILS # (AUTO) 6.2 10^3/uL (1.5-6.6); NEUTROPHILS % (AUTO) 85.3 %; PLT - PLATELET COUNT 147 10^3/uL (130-450); RED BLOOD COUNT 3.47 10^6/uL (4.70-6.10); RED CELL DISTRIBUTION WIDTH 13.5 % (12.0-15.0); WHITE BLOOD COUNT 7.2 x10^3/uL (4.8-10.8)
[2023-01-30 06:52] LABS: CALCIUM 7.7 mg/dL (8.5-10.3); CREATININE 0.8 mg/dL (0.6-1.2); POTASSIUM 3.9 mmol/L (3.5-5.0)
[2023-01-30] MEDS: polyethylene glycoL 3350 17 GM PACKET PO SCH (08:25)
[2023-01-30] MEDS: CHOLECALCIFEROL 25 MCG TABLET PO SCH (08:26)
[2023-01-30] MEDS: TAMSULOSIN 0.4 MG CAPSULE PO SCH (08:26)
[2023-01-30] MEDS: SENNA 8.6 MG TABLET PO SCH (08:26)
[2023-01-30] MEDS: guaiFENesin 600 MG TABLET PO SCH ×2 (08:26→20:07)
[2023-01-30] MEDS: THIAMINE 100 MG TABLET PO SCH (08:26)
[2023-01-30] MEDS: guaiFENesin/DEXTROMETHORPHAN 10 ML UDC PO PRN (08:26)
[2023-01-30] MEDS: MULTIVITAMIN W/MINERALS TABLET PO SCH (08:26)
[2023-01-30] MEDS: SODIUM CHLORIDE FLUSH 0.9% 10 ML SYRINGE IVP SCH ×3 (08:27→16:07)
[2023-01-30 08:46] LABS: ALBUMIN 2.8 g/dL (3.2-5.5); BILIRUBIN,DIRECT 0.3 mg/dL (0.1-0.5); BILIRUBIN,TOTAL 0.9 mg/dL (0.2-1.0)
[2023-01-30] MEDS: SODIUM CHLORIDE 0.9% 1,000 ML IV SCH ×2 (10:23→20:07)
[2023-01-30] MEDS: predniSONE 5 MG TABLET PO SCH (12:34)
[2023-01-30] MEDS: BENZONATATE 100 MG CAPSULE PO SCH ×2 (14:22→20:57)
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
[2023-01-31] MEDS: SODIUM CHLORIDE FLUSH 0.9% 10 ML SYRINGE IVP SCH ×3 (01:15→16:45)
[2023-01-31] MEDS: guaiFENesin/DEXTROMETHORPHAN 10 ML UDC PO PRN ×2 (01:18→18:30)
[2023-01-31] MEDS: ACETAMINOPHEN 325 MG TABLET PO PRN ×3 (01:25→18:30)
[2023-01-31 05:03] LABS: HCT - HEMATOCRIT 31.4 % (42.0-52.0); HGB - HEMOGLOBIN 9.9 g/dL (14.0-18.0); LYMPHOCYTES # (AUTO) 0.5 10^3/uL (1.5-3.5); LYMPHOCYTES % (AUTO) 6.5 %; MEAN CORPUSCULAR HEMOGLOBIN 29.2 pg (27.0-31.0); MEAN CORPUSCULAR HGB CONC 31.5 g/dL (32.0-36.0); MEAN CORPUSCULAR VOLUME 92.6 fL (80.0-94.0); MEAN PLATELET VOLUME 9.5 fL (7.4-11.4); MONOCYTES # (AUTO) 0.5 10^3/uL (0.0-1.0); MONOCYTES % (AUTO) 7.3 %; NEUTROPHILS % (AUTO) 85.8 %; PLT - PLATELET COUNT 178 10^3/uL (130-450); RED BLOOD COUNT 3.39 10^6/uL (4.70-6.10); RED CELL DISTRIBUTION WIDTH 13.6 % (12.0-15.0)
[2023-01-31 05:17] LABS: CREATININE 0.9 mg/dL (0.6-1.2); POTASSIUM 3.7 mmol/L (3.5-5.0)
[2023-01-31] MEDS: BENZONATATE 100 MG CAPSULE PO SCH ×3 (05:26→21:00)
[2023-01-31] MEDS: SODIUM CHLORIDE 0.9% 1,000 ML IV SCH ×2 (05:31→14:07)
[2023-01-31] MEDS: polyethylene glycoL 3350 17 GM PACKET PO SCH (09:25)
[2023-01-31] MEDS: MULTIVITAMIN W/MINERALS TABLET PO SCH (09:26)
[2023-01-31] MEDS: predniSONE 5 MG TABLET PO SCH (09:26)
[2023-01-31] MEDS: SENNA 8.6 MG TABLET PO SCH (09:26)
[2023-01-31] MEDS: THIAMINE 100 MG TABLET PO SCH (09:26)
[2023-01-31] MEDS: CHOLECALCIFEROL 25 MCG TABLET PO SCH (09:26)
[2023-01-31] MEDS: guaiFENesin 600 MG TABLET PO SCH ×2 (09:26→20:59)
[2023-01-31] MEDS: TAMSULOSIN 0.4 MG CAPSULE PO SCH (09:27)
[2023-01-31] MEDS: BENZOCAINE/MENTHOL LOZENGE MM PRN (11:10)
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
[2023-01-31] MEDS ORDERED: ENOXAPARIN 40 MG/0.4 ML SYRINGE SUBQ STA (15:56)
--- NOTE | 2023-01-31 17:05 | Ultrasound Report ---
PROCEDURE: Duplex Ext Veins Left INDICATIONS: L arm palpable chord, eval for thrombosis TECHNIQUE: Real-time imaging, as well as color and pulse Doppler interrogation, were performed of the lower extr emity deep veins from the inguinal ligament to the popliteal fossa. COMPARISON: None. FINDINGS: The deep veins are normally compressible, and free of intraluminal thrombus. Color and pu lse Doppler demonstrate normal phasic intraluminal flow. There is normal augmentation response to di stal compression maneuver. Incidental note is made of a small superficial vein thrombus at the left forearm area of current clinical concern. IMPRESSION: Small superficial vein thrombus exactly at the area of current clinical concern but no D VT is present. Reviewed by: Zak Scanlon MD on 01/31/2023 5:03 PM PDT Approved by: Zak Scanlon MD on 01/31/2023 5:03 PM PDT Station ID: [id number]
[2023-02-01] MEDS: SODIUM CHLORIDE FLUSH 0.9% 10 ML SYRINGE IVP SCH ×3 (00:19→16:18)
[2023-02-01] MEDS: ZINC OXIDE 20% OINT 30 GM TUBE TOP PRN ×2 (00:20→04:20)
[2023-02-01] MEDS: ACETAMINOPHEN 325 MG TABLET PO PRN ×2 (00:26→20:00)
[2023-02-01] MEDS: guaiFENesin/DEXTROMETHORPHAN 10 ML UDC PO PRN ×2 (00:26→20:01)
[2023-02-01] MEDS: BENZONATATE 100 MG CAPSULE PO SCH ×3 (06:38→21:47)
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
[2023-02-01] MEDS: guaiFENesin 600 MG TABLET PO SCH ×2 (09:35→21:47)
[2023-02-01] MEDS: MULTIVITAMIN W/MINERALS TABLET PO SCH (09:35)
[2023-02-01] MEDS: THIAMINE 100 MG TABLET PO SCH (09:35)
[2023-02-01] MEDS: ENOXAPARIN 40 MG/0.4 ML SYRINGE SUBQ SCH (09:36)
[2023-02-01] MEDS: predniSONE 5 MG TABLET PO SCH (09:36)
[2023-02-01] MEDS: SENNA 8.6 MG TABLET PO SCH (09:36)
[2023-02-01] MEDS: TAMSULOSIN 0.4 MG CAPSULE PO SCH (09:36)
[2023-02-01] MEDS: FINASTERIDE 5 MG TABLET PO SCH (09:36)
[2023-02-01] MEDS: CHOLECALCIFEROL 25 MCG TABLET PO SCH (09:36)
[2023-02-01] MEDS: polyethylene glycoL 3350 17 GM PACKET PO SCH (09:37)
[2023-02-01] MEDS: BENZOCAINE/MENTHOL LOZENGE MM PRN (13:38)
[2023-02-02] MEDS: ACETAMINOPHEN 325 MG TABLET PO PRN (00:17)
[2023-02-02] MEDS: SODIUM CHLORIDE FLUSH 0.9% 10 ML SYRINGE IVP SCH ×3 (00:19→17:31)
[2023-02-02] MEDS: BENZONATATE 100 MG CAPSULE PO SCH ×3 (05:27→21:08)
[2023-02-02] MEDS: ENOXAPARIN 40 MG/0.4 ML SYRINGE SUBQ SCH (08:54)
[2023-02-02] MEDS: SENNA 8.6 MG TABLET PO SCH (08:55)
[2023-02-02] MEDS: MULTIVITAMIN W/MINERALS TABLET PO SCH (08:55)
[2023-02-02] MEDS: TAMSULOSIN 0.4 MG CAPSULE PO SCH (08:55)
[2023-02-02] MEDS: CHOLECALCIFEROL 25 MCG TABLET PO SCH (08:55)
[2023-02-02] MEDS: polyethylene glycoL 3350 17 GM PACKET PO SCH (08:55)
[2023-02-02] MEDS: predniSONE 5 MG TABLET PO SCH (08:56)
[2023-02-02] MEDS: FINASTERIDE 5 MG TABLET PO SCH (08:56)
[2023-02-02] MEDS: THIAMINE 100 MG TABLET PO SCH (08:56)
[2023-02-02] MEDS: guaiFENesin 600 MG TABLET PO SCH ×2 (08:58→21:08)
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
[2023-02-02] MEDS ORDERED: CARBOXYMETHYLCELLULOSE OPHTH DROPS EACHEYE PRN (17:15)
[2023-02-02] MEDS: guaiFENesin/DEXTROMETHORPHAN 10 ML UDC PO PRN (17:59)
[2023-02-03] MEDS: guaiFENesin/DEXTROMETHORPHAN 10 ML UDC PO PRN (01:49)
[2023-02-03] MEDS: SODIUM CHLORIDE FLUSH 0.9% 10 ML SYRINGE IVP SCH ×3 (01:50→16:43)
[2023-02-03] MEDS: ACETAMINOPHEN 325 MG TABLET PO PRN (01:55)
[2023-02-03] MEDS: BENZONATATE 100 MG CAPSULE PO SCH ×3 (05:55→21:08)
[2023-02-03] MEDS ORDERED: guaiFENesin/CODEINE 5 ML UDC PO PRN (07:36)
[2023-02-03] MEDS: polyethylene glycoL 3350 17 GM PACKET PO SCH (09:07)
[2023-02-03] MEDS: SENNA 8.6 MG TABLET PO SCH (09:07)
[2023-02-03] MEDS: ENOXAPARIN 40 MG/0.4 ML SYRINGE SUBQ SCH (09:08)
[2023-02-03] MEDS: CHOLECALCIFEROL 25 MCG TABLET PO SCH (09:08)
[2023-02-03] MEDS: FINASTERIDE 5 MG TABLET PO SCH (09:08)
[2023-02-03] MEDS: predniSONE 5 MG TABLET PO SCH (09:08)
[2023-02-03] MEDS: guaiFENesin 600 MG TABLET PO SCH ×2 (09:08→21:08)
[2023-02-03] MEDS: TAMSULOSIN 0.4 MG CAPSULE PO SCH (09:08)
[2023-02-03] MEDS: THIAMINE 100 MG TABLET PO SCH (09:08)
[2023-02-03] MEDS: MULTIVITAMIN W/MINERALS TABLET PO SCH (09:08)
[2023-02-03] MEDS: ZINC OXIDE 20% OINT 30 GM TUBE TOP PRN (14:26)
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
[2023-02-04] MEDS: guaiFENesin/DEXTROMETHORPHAN 10 ML UDC PO PRN (01:46)
[2023-02-04] MEDS: SODIUM CHLORIDE FLUSH 0.9% 10 ML SYRINGE IVP SCH ×3 (01:46→17:00)
[2023-02-04] MEDS: BENZONATATE 100 MG CAPSULE PO SCH ×3 (05:36→21:56)
[2023-02-04] MEDS: polyethylene glycoL 3350 17 GM PACKET PO SCH (08:58)
[2023-02-04] MEDS: SENNA 8.6 MG TABLET PO SCH (08:58)
[2023-02-04] MEDS: TAMSULOSIN 0.4 MG CAPSULE PO SCH (08:58)
[2023-02-04] MEDS: predniSONE 5 MG TABLET PO SCH (08:58)
[2023-02-04] MEDS: THIAMINE 100 MG TABLET PO SCH (08:58)
[2023-02-04] MEDS: guaiFENesin 600 MG TABLET PO SCH ×2 (08:58→21:56)
[2023-02-04] MEDS: FINASTERIDE 5 MG TABLET PO SCH (08:58)
[2023-02-04] MEDS: ENOXAPARIN 40 MG/0.4 ML SYRINGE SUBQ SCH (08:59)
[2023-02-04] MEDS: CHOLECALCIFEROL 25 MCG TABLET PO SCH (08:59)
[2023-02-04] MEDS: MULTIVITAMIN W/MINERALS TABLET PO SCH (08:59)
[2023-02-04] MEDS: ACETAMINOPHEN 325 MG TABLET PO PRN (13:50)
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
[2023-02-05] MEDS: SODIUM CHLORIDE FLUSH 0.9% 10 ML SYRINGE IVP SCH ×3 (01:00→21:24)
[2023-02-05] MEDS: BENZONATATE 100 MG CAPSULE PO SCH ×3 (06:01→21:24)
[2023-02-05] MEDS: polyethylene glycoL 3350 17 GM PACKET PO SCH (08:00)
[2023-02-05] MEDS: ENOXAPARIN 40 MG/0.4 ML SYRINGE SUBQ SCH (08:02)
[2023-02-05] MEDS: predniSONE 5 MG TABLET PO SCH (08:02)
[2023-02-05] MEDS: SENNA 8.6 MG TABLET PO SCH (08:02)
[2023-02-05] MEDS: CHOLECALCIFEROL 25 MCG TABLET PO SCH (08:02)
[2023-02-05] MEDS: MULTIVITAMIN W/MINERALS TABLET PO SCH (08:03)
[2023-02-05] MEDS: guaiFENesin 600 MG TABLET PO SCH ×2 (08:03→21:24)
[2023-02-05] MEDS: TAMSULOSIN 0.4 MG CAPSULE PO SCH (08:03)
[2023-02-05] MEDS: FINASTERIDE 5 MG TABLET PO SCH (08:03)
[2023-02-05] MEDS: THIAMINE 100 MG TABLET PO SCH (08:03)
[2023-02-05] MEDS: guaiFENesin/DEXTROMETHORPHAN 10 ML UDC PO PRN (13:47)
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
[2023-02-06] MEDS: SODIUM CHLORIDE FLUSH 0.9% 10 ML SYRINGE IVP SCH ×4 (00:23→23:55)
[2023-02-06] MEDS: BENZONATATE 100 MG CAPSULE PO SCH ×3 (05:32→21:06)
[2023-02-06] MEDS: polyethylene glycoL 3350 17 GM PACKET PO SCH (08:51)
[2023-02-06] MEDS: ACETAMINOPHEN 325 MG TABLET PO PRN ×2 (08:51→16:57)
[2023-02-06] MEDS: guaiFENesin/DEXTROMETHORPHAN 10 ML UDC PO PRN (08:51)
[2023-02-06] MEDS: ENOXAPARIN 40 MG/0.4 ML SYRINGE SUBQ SCH (08:51)
[2023-02-06] MEDS: TAMSULOSIN 0.4 MG CAPSULE PO SCH (08:52)
[2023-02-06] MEDS: FINASTERIDE 5 MG TABLET PO SCH (08:52)
[2023-02-06] MEDS: guaiFENesin 600 MG TABLET PO SCH ×2 (08:52→21:06)
[2023-02-06] MEDS: predniSONE 5 MG TABLET PO SCH (08:52)
[2023-02-06] MEDS: THIAMINE 100 MG TABLET PO SCH (08:52)
[2023-02-06] MEDS: SENNA 8.6 MG TABLET PO SCH (08:52)
[2023-02-06] MEDS: MULTIVITAMIN W/MINERALS TABLET PO SCH (08:52)
[2023-02-06] MEDS: CHOLECALCIFEROL 25 MCG TABLET PO SCH (08:53)
[2023-02-07] MEDS: guaiFENesin/DEXTROMETHORPHAN 10 ML UDC PO PRN (02:06)
[2023-02-07] MEDS: ACETAMINOPHEN 325 MG TABLET PO PRN (02:46)
[2023-02-07] MEDS: BENZONATATE 100 MG CAPSULE PO SCH (05:00)
--- NOTE | 2023-02-07 08:18 | Discharge Plan ---
"Discharge Plan for SNF / [facility] - Discharge Plan And Transition Orders Problem Reviewed?: Yes Disposition: 03 SNF DC/Xfer Condition: Fair Allergies and Adverse Reactions: Allergies Allergy/AdvReac Type Severity Reaction Status Date / Time No Known Drug Allergies Allergy Verified 01/25/23 14:44 Health Concerns: Patient was hospitalized after he was found down on the ground of his home for probably 2 days. He lives alone. He admitted to multiple falls. He is VERY hard of hearing and would communicate with family only by email but his Internet was often down, so the daughter had not heard from hism in 6 days and traveled to check on him. He had been too weak to get up and had no food or liquids or meds for 2 days. He was in Rhabdomyolysis. We also found him to have Dementia, he scored poorly on a SLUMS eval. Due to a previous history of alcohol abuse, he is now on daily thiamine. He is impulsive and had poor gait and balance and worked with PT and OT. He had a sore throat and developed a cough after admission, and tested (+) for COVId but did not desaturate or need Remdesivir. He has completed his requisite COVID isolation period. While here, he needed to be started on prostate meds, due to having urinary retention. He has a prior history of Polymyalgia rheumatica therefore is on prednisone daily. On his last day, the PICC line was removed and the skin site had a skin tear with red skin e dges. A swab wound culture was done. He was ordered to receive Neosporin topical ointment, daily dry gauze dressing changes and a 5-day course of oral Keflex. Plan of Treatment: Administer all meds daily. Participate with PT and OT to maximize functional status. Daughter needs to provide him with a new hearing aid. Care Goals: Improvement in symptoms and stabilization are the goals. His CODE STATUS is DNR/DNI. Assessment: The daughter, who is the DPOA, understands and is agreeable with the plan. - SNF / [facility] Transition Orders Admit to (Facility): [facility] Under the care of (Name): Staff medical provider of [facility] Discharge Diagnosis: (1) Rhabdomyolysis Resolved (2) Prerenal azotemia Resolved (3) Orthostatic Hypotension Resolved (4) Frequent falls As per Hx (5) COVID-19 His oxygen never desaturated, symptoms are improving, he finished his requisite isolation time (6) Acute urinary retention Continue the new Tamsolusin and Finasteride (7) Thrombophlebitis Superficial thrombophlebitis of L medial arm at a previous iv site. It is not tender. (8) Dementia Cognitive eval was done and he got a Slums score of 19/30. Daughter is the DPOA, and makes his decisions. (9) PMR On Prednsione 15 mg daily for this (10) [place] (hard of hearing) Communication by writing is best, or a new working hearing aide is needed. Medicare Certification Statement: I certify that [facility] residential care is medically necessary on a continuing basis for any of the conditions for which she/he is receiving care during hospitalization. Notify PCP of admission and forward orders to primary provider for signature. Other Notification Orders: Call PCP immediately if patient develops dyspnea, chest pain/tightness or edema. House Bowel Program: Yes Additional Bowel Program Orders: If no BM after 2 days, nurse may give M.O.M. 30ml PO PRN and/or ducolax Supp 1 WA and/or HARRY 250mg P.O., and/or senna 1-2 tabs PO. On day 3 nurse may give repeat above order until residents constipation is resolved. Annual Influenza Vaccine (between Jun 06 and January 03): Yes Two-step PPD per [facility] [phone] or approved exception documents: Yes Treatments & Other Orders: Apply Neosporin to right arm skin tear, cover with dry gauze, do this daily. Medication Orders: PLEASE REFER TO THE DISCHARGE MEDICATION LIST. Insulin Orders?: No - Medications New Prescriptions: Tamsulosin [Flomax] 0.4 mg PO DAILY #30 cap cephALEXin [Keflex] 250 mg PO Q6H #20 cap guaiFENesin [Mucinex] 600 mg PO BID #8 tab Neomycin Oneal/Bacitrac Zn/Poly [Neosporin Ointment] 1 applic TP DAILY #28.3 gm Finasteride [Proscar] 5 mg PO DAILY #30 tab Senna [Senokot] 8.6 mg PO DAILY #30 tab Benzonatate [Tessalon] 100 mg PO TID PRN #12 cap PRN Reason: Cough Multivitamin W/Minerals [Theragran M] 1 tab PO DAILYWM #30 tab Thiamine [Vitamin B-1] 100 mg PO DAILY #30 tab Cholecalciferol [Vitamin D3] 50 mcg PO DAILY #30 tab - Diet Type: Geriatric Texture: Regular Liquids: Thin May have monthly special meal: Yes - Therapies | Activity Therapy: Evaluation | Treat if indicated: PT, OT Rehabilitation Potential: Maximize functional status Activity: Activity as Tolerated Weight Bearing: Full Weight Assistance Devices: Walker Follow Up: He will need to establish with a new PCP, since he will now not live on [facility]."
--- NOTE | 2023-02-07 08:39 | DISCHARGE SUMMARY ---
Discharge Summary Admit Date: 01/25/23 Discharge Date: 02/07/23 Discharging Provider: Dr Leann Arredondo Primary Care Provider: Dr Yaya Cosme Condition at Discharge: Fair Discharge Disposition: 03 SNF DC/Xfer - HPI History of Present Illness: This is an 82-year-old male who lives alone at home. He has a history of hypertension and hyperlipidemia. He is very hard of hearing and communicates with his family by email. He was last seen 6 days ago when someone took him to an appointment. The daughter has not heard from him since that day and also has not received emails from him all week since that day, but this is not unusual because occasionally his computer or the Internet are not in working order. Today the daughter went to check on him and found him down on the ground and EMS was called. The embedded case manager notes state that "foul urine" was noted, he was urinating into Tupperware containers. He had a normal blood pressure, heart rate and glucose. Per his daily medication His medicines had not been taken for 2 days, so they estimated he was on the ground for 2 days. He was brought to the ER. He underwent a head CT and C-spine CT which showed no trauma or hemorrhage. His report to the ED provider was that he thinks he fell a day ago and has fallen in the past "due to slippery floors". The paramedics had said that he has daily medications in a dispenser and that these were taken up until yesterday morning when they were not consumed. Therefore they think that he was on the ground for 1-1/2 days. In the ED he attempted to stand to obtain a urine sample and was very unsteady, his knees buckled, he was helped back to the [facility] before he would fall. There were no focal findings on his neurologic exam in the emergency room however the daughter confirmed to the ED provider that the patient was speaking off topic and was also not oriented to month or year which is not his normal. The patient told the ED provider that he does "drink some alcohol". Labs came back showing an elevated BUN/creatinine of 47/ 1.1. CK of 2500. The ED provider spoke to me about this patient. He will be placed in Observation status for managing rhabdomyolysis caused by his fall and laying on the ground for 1.5 days. He has evidence of volume depletion and may have had orthostasis, but this could not be confirmed in the ED, since he would only go from supine to sitting position. - HOSPITAL COURSE Hospital Course: (1) Rhabdomyolysis Resolved with several days of iv hydration (2) Prerenal azotemia Resolved with iv hydration. (3) Orthostatic Hypotension Resolved after stopping his Lisinopril and after several days of iv hydration. (4) Frequent falls As per Hx, his falls were "too numerous to count". He was evaluated by PT and OT. He was weak but improved with rehab, needs to use a walker. He was felt to be very impulsive, would get up on his own before asking for help (because he could not remember). He claimed that his floors were "very slippery". While here, he was witnessed to get up from his chair, walk over to his quad walker, and while holding the handles, he would urinate onto the wall, creating a wet puddle. (5) COVID-19 He had a sore throat on the day of admission. By 2 days later he had a productive cough and on day 3 of hospitalization he was tested for COVID and was positive. His oxygen monitoring never desaturated below 90%. Hsi symptoms of sore throat and cough improved with Cepacol, Tessalon Perles and Mucinex. He did not qualify for IV Remdesivir or IV Decadron. He finished his requisite COVID isolation time and was discharged then. (6) Acute urinary retention He had many episodes with residual 300 to 400 cc in his urinary bladder, noted on bladder scans, after urinating. No Johnston was needed but he was started on new Tamsolusin and Finasteride (7) Thrombophlebitis Superficial thrombophlebitis of L medial arm at a previous iv site was noted and Doppler showed a small clot. It is not tender. (8) Dementia Cognitive eval was done and he had a Slums score of 19/30. He was a poor historian and oriented x0. He was felt to no longer be able to make decisions for himself. Daughter is the DPOA, and began making all his decisions. Since there was a prior history of heavy alcohol use, he received IV thiamine high- dose for 3 days then was put on daily oral Thiamine 100 mg. He was also put on multivitamin with minerals. To our knowledge he has never had a Neurology evaluation of his poor memory and poor cognitive skills. He used to live alone and there is no other able caregiver there, so Social Workers and his daughter, the EDWIN, worked on finding him a memory care living facility. He finished his requisite COVID isolation time and was discharged on 02/07/23 to live at that facility. (9) PMR He is on Prednsione 15 mg daily for this. He saw a Sailor once, never returned for a follow-up visit. (10) STANDING ROCK (hard of hearing) He is very hard of hearing, probably reads lips somewhat. Even with the hearing aids that the daughter brought in from his home, we were still raising our voices to communicate with him and he still did not understand us. Communication by writing was best, or a new working hearing aide is needed. (11) Skin tear wound A round 2 cm skin tear was noted at site of PICC line. This was noticed on day of discharge, when the PICC line was remove. A swabbed wound culture was sent off. Orders for topical Neosporin, daily dry gauze dressings and 5 days of Keflex 250mg QID were ordered for treating this, after discharge. - ALLERGIES Allergies/Adverse Reactions: Allergies Allergy/AdvReac Type Severity Reaction Status Date / Time No Known Drug Allergies Allergy Verified 02/07/23 14:26 - MEDICATIONS Home Medications: Ambulatory Orders Medication Instructions Recorded Confirmed Acetaminophen [Tylenol Arthritis] 650 mg PO BID PRN 01/27/23 01/27/23 predniSONE [Deltasone] 15 mg PO DAILY 01/27/23 01/27/23 Benzonatate [Tessalon] 100 mg PO TID PRN #12 cap 02/07/23 Cholecalciferol [Vitamin D3] 50 mcg PO DAILY #30 tab 02/07/23 Finasteride [Proscar] 5 mg PO DAILY #30 tab 02/07/23 Multivitamin W/Minerals [Theragran 1 tab PO DAILYWM #30 tab 02/07/23 M] Neomycin Oneal/Bacitrac Zn/Poly 1 applic TP DAILY #28.3 gm 02/07/23 [Neosporin Ointment] Senna [Senokot] 8.6 mg PO DAILY #30 tab 02/07/23 Tamsulosin [Flomax] 0.4 mg PO DAILY #30 cap 02/07/23 Thiamine [Vitamin B-1] 100 mg PO DAILY #30 tab 02/07/23 cephALEXin [Keflex] 250 mg PO Q6H #20 cap 02/07/23 guaiFENesin [Mucinex] 600 mg PO BID #8 tab 02/07/23 - PHYSICAL EXAM AT DISCHARGE General Appearance: positive: No acute distress, Alert Eyes Bilateral: positive: Normal inspection, EOMI ENT: positive: ENT inspection nml, No signs of dehydration, Other (Very STANDING ROCK. He lost a gold-capped tooth (today)) Neck: positive: Nml inspection, No JVD Respiratory: positive: No respiratory distress Cardiovascular: positive: Regular rate & rhythm, No murmur Abdomen: positive: Non-tender, No distention Skin: positive: Warm, Dry Extremities: positive: Other (R antecubital small round skin tear, t PICC line insertion site, red edges) Neurologic/Psychiatric: positive: Motor nml, Disoriented to person, Disoriented to place, Disoriented to time - LABS Result Diagrams: 01/31/23 04:18 01/31/23 04:18 - FOLLOW UP Follow Up: See his PCP and medical Te[place] or arranged to get a new PCP since he will now be living closer to [place], closer to his daughter. - TIME SPENT Time Spent in Discharge (Minutes): 60
[2023-02-07] MEDS: FINASTERIDE 5 MG TABLET PO SCH (08:40)
[2023-02-07] MEDS: guaiFENesin 600 MG TABLET PO SCH (08:40)
[2023-02-07] MEDS: MULTIVITAMIN W/MINERALS TABLET PO SCH (08:40)
[2023-02-07] MEDS: TAMSULOSIN 0.4 MG CAPSULE PO SCH (08:40)
[2023-02-07] MEDS: THIAMINE 100 MG TABLET PO SCH (08:40)
[2023-02-07] MEDS: CHOLECALCIFEROL 25 MCG TABLET PO SCH (08:40)
[2023-02-07] MEDS: ENOXAPARIN 40 MG/0.4 ML SYRINGE SUBQ SCH (08:40)
[2023-02-07] MEDS: predniSONE 5 MG TABLET PO SCH (08:40)
[2023-02-07] MEDS: SODIUM CHLORIDE FLUSH 0.9% 10 ML SYRINGE IVP SCH (08:41)
[2023-02-07] MEDS: polyethylene glycoL 3350 17 GM PACKET PO SCH (08:41)
[2023-02-07] MEDS: SENNA 8.6 MG TABLET PO SCH (08:41)
[2023-02-07] MEDS ORDERED: NEOMYCIN/BACITRA/POLYMYX OINT PACKET TOP SCH (11:00)
[2023-02-07 11:19] VITALS: BP 152/70
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
== END 2023-02-07 11:15 | DRG 557 ==
LOC: EDUNIT# → ED 14:34 → MS2 17:56 → OBSVTOIN 01-26 08:27
PROVIDERS: ADMIT Internal Medicine; ATTEND Internal Medicine
PROC: 02HV33Z Insertion of Infusion Device into Superior Vena Cava, Percutaneous Approach (ICD-10-PCS; principal; 2023-01-28)
DX: M62.82 Rhabdomyolysis (principal); U07.1 COVID-19; I95.1 Orthostatic hypotension; Z91.81 History of falling; Y93.9 Activity, unspecified; E78.00 Pure hypercholesterolemia, unspecified; R79.89 Other specified abnormal findings of blood chemistry; I10 Essential (primary) hypertension; E78.5 Hyperlipidemia, unspecified; H91.93 Unspecified hearing loss, bilateral; W19.XXXA Unspecified fall, initial encounter; Y92.009 Unspecified place in unspecified non-institutional (private) residence as the place of occurrence of the external cause; I80.8 Phlebitis and thrombophlebitis of other sites; R33.9 Retention of urine, unspecified; F03.90 Unspecified dementia, unspecified severity, without behavioral disturbance, psychotic disturbance, mood disturbance, and anxiety; M35.3 Polymyalgia rheumatica; F32.A Depression, unspecified; Z85.46 Personal history of malignant neoplasm of prostate; Z92.3 Personal history of irradiation; E86.9 Volume depletion, unspecified; R41.3 Other amnesia; S40.022A Contusion of left upper arm, initial encounter; S40.021A Contusion of right upper arm, initial encounter; S80.12XA Contusion of left lower leg, initial encounter; S80.11XA Contusion of right lower leg, initial encounter; R27.0 Ataxia, unspecified; F10.11 Alcohol abuse, in remission; M25.561 Pain in right knee; M25.562 Pain in left knee; R53.1 Weakness; S51.811A Laceration without foreign body of right forearm, initial encounter; X58.XXXA Exposure to other specified factors, initial encounter; Y92.239 Unspecified place in hospital as the place of occurrence of the external cause
CPT/HCPCS: 36415; 51701; 70450; 71045; 72125; 80048; 80053; 80076; 81003; 82550; 83690; 83735; 84100; 84443; 85025; 87070; 87205; 87635; 93005; 93306; 93971; 94640; 96360; 96361; 97161; 97166; 97530; 97535; 99285; A9270; G0378; G0480; J1650; J3411; J7040; J7512; 80320; 81001; 87086

== ENCOUNTER 2023-02-07 14:15 | Emergency (ER) | payer MEDICARE ==
--- NOTE | 2023-02-07 14:20 | ED Physician Documentation ---
History of Present Illness - Stated complaint Stated Complaint: No complaint - Chief complaint Chief Complaint: General - History obtained from History obtained from: Patient, EMS - History of Present Illness Pain level max: 0 Pain level now: 0 - Additonal information Additional information: Patient was discharged from the hospital about an hour prior to his arrival here. He was in an ambulance going to a assisted when he told the ambulance personnel that he did not want to go to the assisted despite his significant dementia and his POA agreeing to the assisted. They turned around and brought the patient to the emergency department. The patient has no complaints. The assisted states that they cannot take him at this time of day on a Friday. They state that they can take him on Friday. The patient states that when he was in the back of the ambulance he noted that it was going north towards [place] and he was supposed to going to [place] in [place]. He states that his daughter lives in [place]. He usually lives at home alone, but has had several falls recently. He denies any complaints currently and states that he feels like he can go back home and take care of himself. Review of Systems Unable to obtain: Dementia Constitutional: denies: Fever PD PAST MEDICAL HISTORY - Past Medical History Cardiovascular: Hypertension, High cholesterol Neuro: Dementia Psych: Depression - Past Surgical History Past Surgical History: Yes General: Cholecystectomy, Bowel surgery - Present Medications Home Medications: Ambulatory Orders Medication Instructions Recorded Confirmed Acetaminophen [Tylenol Arthritis] 650 mg PO BID PRN 01/27/23 01/27/23 predniSONE [Deltasone] 15 mg PO DAILY 01/27/23 01/27/23 Benzonatate [Tessalon] 100 mg PO TID PRN #12 cap 02/07/23 Cholecalciferol [Vitamin D3] 50 mcg PO DAILY #30 tab 02/07/23 Finasteride [Proscar] 5 mg PO DAILY #30 tab 02/07/23 Multivitamin W/Minerals [Theragran 1 tab PO DAILYWM #30 tab 02/07/23 M] Neomycin Oneal/Bacitrac Zn/Poly 1 applic TP DAILY #28.3 gm 02/07/23 [Neosporin Ointment] Senna [Senokot] 8.6 mg PO DAILY #30 tab 02/07/23 Tamsulosin [Flomax] 0.4 mg PO DAILY #30 cap 02/07/23 Thiamine [Vitamin B-1] 100 mg PO DAILY #30 tab 02/07/23 cephALEXin [Keflex] 250 mg PO Q6H #20 cap 02/07/23 guaiFENesin [Mucinex] 600 mg PO BID #8 tab 02/07/23 - Allergies Allergies/Adverse Reactions: Allergies Allergy/AdvReac Type Severity Reaction Status Date / Time No Known Drug Allergies Allergy Verified 02/07/23 14:26 - Social History Does the pt smoke?: No Smoking Status: Never smoker PD ED PE NORMAL - Vitals Vital signs reviewed: Yes - General General: Well developed/nourished, Other (alert, very hard of hearing, oriented to person and place) - HEENT HEENT: Atraumatic, PERRL, Moist mucous membranes - Neck Neck: Supple, no meningeal sign - Cardiac Cardiac: RRR - Respiratory Respiratory: No respiratory distress, Clear bilaterally - Abdomen Abdomen: Soft, Non tender, Non distended - Derm Derm: Warm and dry - Extremities Extremities: No deformity, No edema - Neuro Neuro: software developer mid level 2-12 intact, No motor deficit, No sensory deficit, Normal speech, Other (alert) Eye Opening: Spontaneous Motor: Obeys Commands Verbal: Confused (baseline) GCS Score: 14 - Psych Psych: Other (calm) Results - Vitals Vitals: Vital Signs - 24 hr 02/07/23 14:19 Temperature 36.8 C Heart Rate 111 H Respiratory 16 Rate Blood Pressure 151/77 H O2 Saturation 95 Oxygen O2 Source Room air PD Medical Decision Making - ED course Complexity details: considered differential, d/w patient ED course: The hospitalist refuses to readmit the patient despite his discharge less than 1 hour prior. Hospital administration team also refuses to have the patient admitted back to the floor. Because the assisted cannot take the patient on Friday and our hospitalist team here refuses to admit the patient back to the floor, the patient will board in the emergency department until that time as there is no safe discharge. There is no emergency medical condition at this time. Patient will be signed out to the oncoming emergency department physician. Patient will continue to board in the emergency department. SW consult placed home meds ordered Departure - Departure Clinical Impression: No able caregiver in household Dementia Qualifiers: Dementia type: unspecified type Dementia severity: unspecified severity Dementia behavioral or psychological symptom: without behavioral, psychotic, or mood disturbance or anxiety Qualified Code(s): F03.90 - Unspecified dementia, unspecified severity, without behavioral disturbance, psychotic disturbance, mood disturbance, and anxiety Condition: Stable
[2023-02-07] MEDS ORDERED: ACETAMINOPHEN 500 MG TABLET PO PRN (14:36)
[2023-02-07] MEDS ORDERED: BENZONATATE 100 MG CAPSULE PO PRN (14:37)
[2023-02-07] MEDS: cephALEXin 250 MG CAPSULE PO SCH ×2 (15:46→20:29)
[2023-02-07] MEDS: ENOXAPARIN 100 MG/ML SYRINGE SUBQ SCH (20:29)
[2023-02-08 05:14] LABS: BASOPHILS % (AUTO) 0.3 %; EOSINOPHILS # (AUTO) 0.1 10^3/uL (0.0-0.7); EOSINOPHILS % (AUTO) 1.4 %; HCT - HEMATOCRIT 36.6 % (42.0-52.0); HGB - HEMOGLOBIN 10.9 g/dL (14.0-18.0); LYMPHOCYTES # (AUTO) 1.2 10^3/uL (1.5-3.5); LYMPHOCYTES % (AUTO) 16.8 %; MEAN CORPUSCULAR HEMOGLOBIN 28.2 pg (27.0-31.0); MEAN CORPUSCULAR HGB CONC 29.8 g/dL (32.0-36.0); MEAN CORPUSCULAR VOLUME 94.8 fL (80.0-94.0); MEAN PLATELET VOLUME 8.6 fL (7.4-11.4); MONOCYTES # (AUTO) 0.6 10^3/uL (0.0-1.0); MONOCYTES % (AUTO) 7.9 %; NEUTROPHILS # (AUTO) 5.2 10^3/uL (1.5-6.6); NEUTROPHILS % (AUTO) 72.8 %; PLT - PLATELET COUNT 283 10^3/uL (130-450); RED BLOOD COUNT 3.86 10^6/uL (4.70-6.10); RED CELL DISTRIBUTION WIDTH 13.8 % (12.0-15.0); WHITE BLOOD COUNT 7.2 x10^3/uL (4.8-10.8)
[2023-02-08 05:23] LABS: CALCIUM 8.9 mg/dL (8.5-10.3); CREATININE 1.1 mg/dL (0.6-1.2); POTASSIUM 3.9 mmol/L (3.5-5.0)
[2023-02-08] MEDS: MULTIVITAMIN TABLET PO SCH (06:17)
[2023-02-08] MEDS: PANTOPRAZOLE 40 MG TABLET PO SCH (06:17)
--- NOTE | 2023-02-08 07:39 | ED Physician Documentation ---
ED Addendum - Addendum Addendum: 02/08/23 07:39 Patient seen and examined at the bedside. He was sleeping and not aroused for exam. He appeared comfortable. Vital signs reviewed and unremarkable. He is awaiting placement for dementia after the hospital discharge him yesterday to an appropriate disposition but the ambulance brought him back here as he stated he did not want to go there despite not having decisional capacity.
[2023-02-08] MEDS: TAMSULOSIN 0.4 MG CAPSULE PO SCH (08:49)
[2023-02-08] MEDS: FINASTERIDE 5 MG TABLET PO SCH (08:49)
[2023-02-08] MEDS: ENOXAPARIN 100 MG/ML SYRINGE SUBQ SCH ×2 (08:49→21:35)
[2023-02-08] MEDS: cephALEXin 250 MG CAPSULE PO SCH ×4 (08:49→21:35)
[2023-02-08] MEDS: predniSONE 5 MG TABLET PO SCH (08:49)
[2023-02-09] MEDS ORDERED: LORazepam 1 MG TABLET PO SCH (03:00)
[2023-02-09] MEDS: MULTIVITAMIN TABLET PO SCH (06:43)
[2023-02-09] MEDS: PANTOPRAZOLE 40 MG TABLET PO SCH (06:43)
[2023-02-09] MEDS ORDERED: LORazepam 1 MG TABLET PO STA (08:09)
[2023-02-09] MEDS: ENOXAPARIN 100 MG/ML SYRINGE SUBQ SCH (08:16)
[2023-02-09] MEDS: cephALEXin 250 MG CAPSULE PO SCH (08:16)
[2023-02-09] MEDS: predniSONE 5 MG TABLET PO SCH (08:16)
[2023-02-09] MEDS: TAMSULOSIN 0.4 MG CAPSULE PO SCH (08:16)
[2023-02-09] MEDS: FINASTERIDE 5 MG TABLET PO SCH (08:16)
[2023-02-09 08:25] VITALS: BP 162/65
== END 2023-02-09 09:15 | disposition home or self-care (01) ==
LOC: ED 14:15
DX: Z74.1 Need for assistance with personal care (principal); F03.90 Unspecified dementia, unspecified severity, without behavioral disturbance, psychotic disturbance, mood disturbance, and anxiety; Z76.4 Other boarder to healthcare facility
CPT/HCPCS: 36415; 80048; 85025; 99282; 99283; A9270; J1650; J7512; J8499

== ENCOUNTER 2024-04-30 12:38 | Outpatient (CLI) | payer MEDICARE, MEDICAID ==
[2024-04-30 20:06] LABS: BASOPHILS % (AUTO) 0.3 %; EOSINOPHILS # (AUTO) 0.1 10^3/uL (0.0-0.7); EOSINOPHILS % (AUTO) 1.2 %; HCT - HEMATOCRIT 40.8 % (42.0-52.0); HGB - HEMOGLOBIN 12.7 g/dL (14.0-18.0); LYMPHOCYTES # (AUTO) 0.9 10^3/uL (1.5-3.5); LYMPHOCYTES % (AUTO) 9.4 %; MEAN CORPUSCULAR HEMOGLOBIN 29.1 pg (27.0-31.0); MEAN CORPUSCULAR HGB CONC 31.1 g/dL (32.0-36.0); MEAN CORPUSCULAR VOLUME 93.4 fL (80.0-94.0); MEAN PLATELET VOLUME 10.4 fL (7.4-11.4); MONOCYTES # (AUTO) 0.3 10^3/uL (0.0-1.0); MONOCYTES % (AUTO) 2.9 %; NEUTROPHILS # (AUTO) 7.8 10^3/uL (1.5-6.6); PLT - PLATELET COUNT 171 10^3/uL (130-450); RED BLOOD COUNT 4.37 10^6/uL (4.70-6.10); RED CELL DISTRIBUTION WIDTH 13.2 % (12.0-15.0); WHITE BLOOD COUNT 9.1 x10^3/uL (4.8-10.8)
[2024-04-30 20:26] LABS: ALBUMIN/GLOBULIN RATIO 1.3 (1.0-2.2); BILIRUBIN,TOTAL 0.3 mg/dL (0.2-1.0); CALCIUM 9.5 mg/dL (8.5-10.3); CREATININE 1.2 mg/dL (0.6-1.3); POTASSIUM 4.3 mmol/L (3.5-4.5)
== END 2024-04-30 12:39 | disposition home or self-care (01) ==
LOC: LAB.S 12:38
PROVIDERS: ATTEND Emergency Medicine
DX: R60.0 Localized edema (principal)
CPT/HCPCS: 36415; 80053; 83880; 85025